=== PATIENT | female | born 1970 | race Caucasian/White ===

== ENCOUNTER 2020-11-01 22:40 | Inpatient (IN) | payer MEDICAID ==
[~2020-11-01] VITALS: Ht 162.6 cm; Wt 68.2 kg
[~2020-11-01 22:40] MED LIST: BAC10T PO; CLON-527 PO; GABA300C PO; HYDR-3965 PO; Milk Thistle PO; NO HOME MEDS; OMEP-84 PO
[2020-11-01] MEDS ORDERED: acetaminophen 325mg tablet PO STA (22:54)
[2020-11-01] MEDS ORDERED: normal saline 1000ML IV soln IV ONE (22:55)
[2020-11-01] MEDS ORDERED: CefTRIAXone 2gm/D5W 50ml BAG 50 ML IV ONE (22:55)
[2020-11-01 23:52] LABS: ALANINE AMINOTRANSFERASE 39 U/L (12-78); ALBUMIN 2.1 G/DL (3.4-5.0); ALBUMIN/GLOBULIN RATIO 0.6 (1.1-1.5); ALKALINE PHOSPHATASE 79 IU/L (46-116); ANION GAP 10 (8-16); ASPARTATE AMINO TRANSFERASE 31 U/L (10-37); BILIRUBIN,TOTAL 0.6 MG/DL (0.1-1.0); BLOOD UREA NITROGEN 19 MG/DL (7-18); BUN/CREATININE RATIO 14.7 (6.6-38.0); CALCIUM 6.6 MG/DL (8.5-10.1); CHLORIDE 106 MMOL/L (99-107); CREATININE 1.29 MG/DL (0.40-0.90); ETHANOL < 0.010 GM/DL (0.0-0.010); GLUCOSE 112 MG/DL (70-104); SODIUM 137 MMOL/L (135-145); TOTAL CARBON DIOXIDE 21.2 MMOL/L (24-32); TOTAL PROTEIN 5.4 G/DL (6.4-8.2); eGFR 44 ML/MIN
[2020-11-01 23:53] LABS: POTASSIUM 2.8 MMOL/L (3.5-5.1)
[2020-11-02] VITALS (19 sets, daily range): BP systolic 79–114; BP diastolic 50–78
[2020-11-02] MEDS ORDERED: potassium Cl 20 mEq SR tablet PO ONE (00:20)
[2020-11-02] MEDS ORDERED: magnesium 2GM in 50ml NS 50 ML IV ONE (00:20)
[2020-11-02] MEDS: potassium Cl 10 mEq/100mL bag IV SCH ×2 (00:20→01:20)
[2020-11-02] MEDS ORDERED: ketorolac trometh. 30mg/ml inj. IV ONE (00:25)
[2020-11-02] MEDS ORDERED: morphine 4 MG/ML inj SYRINge IV ONE (00:25)
[2020-11-02 00:53] LABS: MAGNESIUM 1.2 MG/DL (1.5-2.4)
[2020-11-02 01:05] LABS: BASOPHILS % (AUTO) 0.1 % (0-1); EOSINOPHILS % (AUTO) 0 % (0-6); HEMATOCRIT 36.2 % (35.0-45.0); LYMPHOCYTES # (AUTO) 0.6 X10'3 (1.1-4.8); LYMPHOCYTES % (AUTO) 2.3 % (21-51); MEAN CORPUSCULAR HEMOGLOBIN 29.3 PG (27.0-31.0); MEAN CORPUSCULAR VOLUME 88.9 FL (78-98); MEAN PLATELET VOLUME 8.3 FL (7.4-10.4); MONOCYTES % (AUTO) 3.7 % (2-12); NEUTROPHILS # (AUTO) 24.1 X10'3 (1.8-7.7); NEUTROPHILS % (AUTO) 93.9 % (42-75); PLATELET COUNT 122 X10'3 (140-440); RED BLOOD COUNT 4.08 X10'6 (4.20-5.60); RED CELL DISTRIBUTION WIDTH 13.2 % (11.5-14.5)
[2020-11-02 01:07] LABS: WHITE BLOOD COUNT 25.7 X10'3 (4.5-11.0)
[2020-11-02] MEDS ORDERED: morphine 2 MG/ML inj. syringe IV PRN ×3 (01:30→10:40)
[2020-11-02] MEDS ORDERED: HYDROcodone/acetaminophen 10/325mg tab PO PRN (01:30)
[2020-11-02] MEDS ORDERED: diphenhydrAMINE 25mg capsule PO PRN (01:30)
[2020-11-02] MEDS ORDERED: bisacodyl 10mg suppository rectal RC PRN (01:30)
[2020-11-02] MEDS ORDERED: mag hydrox/Alum hydrox/simeth 30ml oral suspension PO PRN (01:30)
[2020-11-02] MEDS ORDERED: acetaminophen 325mg tablet PO PRN ×2 (01:30)
[2020-11-02] MEDS: normal saline 1000ml 1,000 ML IV SCH ×3 (01:30→21:30)
[2020-11-02] MEDS ORDERED: magnesium hydroxide 30ml (MOM) UD suspension PO PRN (01:30)
[2020-11-02] MEDS ORDERED: ondansetron/PF 4mg/2ml inj IV PRN ×2 (01:30→10:40)
[2020-11-02] MEDS ORDERED: HYDROcodone/acetaminophen 5mg/325mg tablet PO PRN (01:30)
[2020-11-02] MEDS ORDERED: HYDROmorphone inj. 0.5 MG/0.5 ML DISP.SYRIN IV PRN (01:30)
[2020-11-02] MEDS ORDERED: diphenhydrAMINE 50 mg/ml inj IV PRN (01:30)
[2020-11-02] MEDS ORDERED: ondansetron 4mg rapidly disintigrating tab PO PRN (01:30)
[2020-11-02] MEDS ORDERED: potassium Cl 40MEQ/1/2NS 520ml 520 ML IV PRN (01:35)
[2020-11-02] MEDS ORDERED: potassium Cl 20 mEq SR tablet PO PRN ×2 (01:35)
[2020-11-02] MEDS ORDERED: magnesium 4gm in 100ml NS 100 ML IV PRN (01:35)
[2020-11-02] MEDS ORDERED: magnesium Cl slow-release 64mg tablet PO PRN (01:35)
[2020-11-02] MEDS ORDERED: NO HOME MEDS PO (01:56)
[2020-11-02] MEDS ORDERED: ringers solution, lacted 1,000 ML IV ONE (02:30)
[2020-11-02 02:41] LABS: PARTIAL THROMBOPLASTIN TIME 45 SECONDS (22-32)
[2020-11-02 02:49] LABS: PHOSPHORUS 2.2 MG/DL (2.3-4.5)
[2020-11-02 03:07] LABS: ANISOCYTOSIS 1+; PLATELET ESTIMATE DECREASED; TOTAL CELLS COUNTED 100
[2020-11-02] MEDS: pantoprazole 40mg Tablet.DR PO SCH (07:30)
[2020-11-02] MEDS: K and/or MAG REPLACEMENT MC SCH ×2 (08:00→20:00)
[2020-11-02] MEDS: docusate sod 100mg capsule PO SCH ×2 (08:00→20:00)
[2020-11-02] MEDS ORDERED: morphine 4 MG/ML inj SYRINge IV PRN (10:40)
[2020-11-02] MEDS ORDERED: labetalol 20mg/4ml (5mg/ml) syringe IV PRN (10:40)
[2020-11-02] MEDS ORDERED: ringers solution, lacted 1,000 ML IV SCH (10:40)
[2020-11-02] MEDS ORDERED: hydrALAZINE 20mg/ml inj. IV PRN (10:40)
[2020-11-02] MEDS ORDERED: fentaNYL/PF 50MCG/1 ML 2ML syringe IV PRN ×2 (10:40)
[2020-11-02] MEDS: CefTRIAXone/D5W-Rocephin 1gm 50 ML IV SCH (11:02)
[2020-11-02 11:25] LABS: CLARITY,URINE CLOUDY (Clear); COLOR,URINE YELLOW (Yellow); GLUCOSE, URINE NEGATIVE (Neg); KETONES,URINE NEGATIVE (Neg); LEUKOCYTE ESTERASE ,URINE LARGE (Neg); OCCULT BLOOD,URINE LARGE (Neg); PH,URINE 5.5 (4.8-8.0); PROTEIN,URINE 100 mg/dl (Neg); URINE AMPHETAMINE SCREEN POSITIVE (Neg); URINE BARBITUATE SCREEN NEGATIVE (Neg); URINE BENZODIAZEPINES SCREEN NEGATIVE (Neg); URINE CANNABINOID SCREEN POSITIVE (Neg); URINE COCAINE SCREEN NEGATIVE (Neg); URINE METHADONE SCREEN NEGATIVE (Neg); URINE OPIATE SCREEN POSITIVE (Neg); URINE PHENCYCLIDINE SCREEN NEGATIVE (Neg); UROBILINOGEN,URINE 0.2 E.U/dL (0.2-1.0)
[2020-11-02] MEDS ORDERED: potassium Cl 10 mEq/100mL bag IV ONE (11:30)
[2020-11-02 11:31] LABS: NITRITES, URINE NEGATIVE (Neg); UA COLLECTION TYPE CLN CATCH MIDSTREAM
[2020-11-02 11:36] LABS: BACTERIA,URINE 4+ /HPF (Neg); SQUAMOUS EPITHELIAL CELL,UR FEW /LPF (FEW); WBC,URINE TNTC /HPF (0-4)
[2020-11-02] MEDS ORDERED: desflurane 240ml liquid inh. IH ONE (12:13)
[2020-11-02] MEDS ORDERED: dexamethasone sod phosphate 10mg/ml inj ONE (12:13)
[2020-11-02] MEDS ORDERED: fentaNYL/PF 50MCG/1 ML 2ML syringe ONE (12:22)
[2020-11-02] MEDS ORDERED: LIDOcaine 2% (20mg/ml) 5ml vial ONE (12:29)
[2020-11-02] MEDS ORDERED: propofol inj 20 ML IV ONE (12:29)
[2020-11-02] MEDS ORDERED: ondansetron/PF 4mg/2ml inj ONE (12:29)
--- NOTE | 2020-11-02 13:00 | NUR ---
PT ARRIVED TO OR VIA GURNEY WITH ANESTHESIOLOGIST, DR BOWLING-REPORT GIVEN, PT STILL SLEEPY, VSS BP HAS BEEN CONSISTENTLY LOW, FEET RAISED, ALBUMIN AVAILABLE IF NEEDED, PIV 20G TO LEFT HAND-NS RUNNING, SCDS IN PLACE, WARM BLANKETS PLACED TO HELP WARM PT.
[2020-11-02] MEDS ORDERED: albumin (Human) 5% 250ml 250 ML IV ONE (13:40)
--- NOTE | 2020-11-02 14:15 | NUR ---
PT AWAKE SITTING UP, VSS WITHOUT NEED FOR ALBUMIN, DENIES PAIN, TAKING FLUIDS, HOSPITALIST IN TO SEE PT-WAITING FOR BED
--- NOTE | 2020-11-02 16:30 | NUR ---
PT HAS BEEN COMFORTABLE, DENIES PAIN, PIV -NS RUNNING AT 100ML/HR UP TO VOID W/O PROBLEM, VSS, TOLERATING MEAL TRAY, STILL WAITING FOR BED.
--- NOTE | 2020-11-02 17:10 | NUR ---
PT STABLE, VSS DENIES PAIN, REPORT CALLED TO PRIMARY RNALINE, ALL QUESTIONS ANSWERED, PT TAKEN WITH ALL BELONGINGS TO RM 3013B VIA W/C. PT AMBULATED SAFELY TO BED W/O DIFFICULTY, PRIMARY RN PRESENT TO RECEIVE PT.
--- NOTE | 2020-11-02 17:17 | NUR ---
Patient in room ED HALL13. I have received report from PRATIBHA COPELAND and had the opportunity to ask questions and assume patient care.
--- NOTE | 2020-11-02 18:00 | NUR ---
Patient in room PCU 3013. I have received report from Mima COPELAND and had the opportunity to ask questions and assume patient care.
--- NOTE | 2020-11-02 18:43 | NUR ---
Problems reprioritized. Patient report given, questions answered & plan of care reviewed with Nicole COPELAND.
[2020-11-02] MEDS ORDERED: temazepam 15mg capsule PO PRN (21:00)
[2020-11-02] MEDS ORDERED: tamsulosin 0.4mg capsule PO SCH (21:00)
--- NOTE | 2020-11-03 01:55 | NUR ---
Patient in room PCU 3013. I have received report from Shikha COPELAND and had the opportunity to ask questions and assume patient care.
[2020-11-03 06:00] VITALS: BP 136/82
[2020-11-03 06:13] LABS: BASOPHILS % (AUTO) 0 % (0-1); EOSINOPHILS % (AUTO) 0 % (0-6); HEMATOCRIT 33.1 % (35.0-45.0); HEMOGLOBIN 10.9 g/dl (12.0-16.0); LYMPHOCYTES # (AUTO) 0.6 X10'3 (1.1-4.8); LYMPHOCYTES % (AUTO) 2.8 % (21-51); MEAN CORPUSCULAR HEMOGLOBIN 29.2 PG (27.0-31.0); MEAN CORPUSCULAR HGB CONC 33.1 g/dL (33.0-36.5); MEAN PLATELET VOLUME 8.7 FL (7.4-10.4); MONOCYTES # (AUTO) 0.6 X10'3 (0-0.9); MONOCYTES % (AUTO) 2.9 % (2-12); NEUTROPHILS # (AUTO) 18.9 X10'3 (1.8-7.7); NEUTROPHILS % (AUTO) 94.3 % (42-75); PLATELET COUNT 101 X10'3 (140-440); RED BLOOD COUNT 3.76 X10'6 (4.20-5.60); RED CELL DISTRIBUTION WIDTH 13.5 % (11.5-14.5)
--- NOTE | 2020-11-03 06:26 | NUR ---
Problems reprioritized. Patient report given, questions answered & plan of care reviewed with Polly COPELAND.
[2020-11-03 06:27] LABS: ALANINE AMINOTRANSFERASE 43 U/L (12-78); ALBUMIN/GLOBULIN RATIO 0.5 (1.1-1.5); ALKALINE PHOSPHATASE 98 IU/L (46-116); ANION GAP 8 (8-16); ASPARTATE AMINO TRANSFERASE 24 U/L (10-37); BILIRUBIN,TOTAL 0.3 MG/DL (0.1-1.0); BLOOD UREA NITROGEN 26 MG/DL (7-18); BUN/CREATININE RATIO 21.7 (6.6-38.0); CHLORIDE 108 MMOL/L (99-107); GLUCOSE 129 MG/DL (70-104); MAGNESIUM 2.2 MG/DL (1.5-2.4); POTASSIUM 4.6 MMOL/L (3.5-5.1); SODIUM 139 MMOL/L (135-145); TOTAL CARBON DIOXIDE 23.2 MMOL/L (24-32); TOTAL PROTEIN 6.1 G/DL (6.4-8.2); eGFR 48 ML/MIN
--- NOTE | 2020-11-03 06:30 | NUR ---
pt has been darted per shift supervisor melting but needed skin check. night nurse said they would get this signed with another nurse.
--- NOTE | 2020-11-03 06:32 | NUR ---
Patient in room PCU 3013. I have received report from JENS COPELAND and had the opportunity to ask questions and assume patient care.
[2020-11-03] MEDS: normal saline 1000ml 1,000 ML IV SCH (07:30)
[2020-11-03] MEDS: CefTRIAXone/D5W-Rocephin 1gm 50 ML IV SCH (08:00)
[2020-11-03] MEDS: K and/or MAG REPLACEMENT MC SCH (08:00)
[2020-11-03] MEDS: pantoprazole 40mg Tablet.DR PO SCH (09:38)
[2020-11-03] MEDS: docusate sod 100mg capsule PO SCH (09:38)
--- NOTE | 2020-11-03 10:05 | NUR ---
went to give pt morning meds she stated she feels as if she is being discriminated and wants to leave. i let the charge nurse and doctor know. doctor does not want to discharge her so pt would have to fill out AMA form. pt agreed and declined iv antibiotics. i had pt fill out AMA form and had dr wesley sign it along with letting the charge nurse mario aware of the pts status. pt will arrange own ride home.
--- NOTE | 2020-11-03 12:00 | NUR ---
pt left AMA, tele was taken off, she took all belongings with her and I've was Discontinued. pt was made aware of risk factors of early discharge without dr approved discharge
--- NOTE | 2020-11-04 11:38 | NUR ---
PT LEFT AMA Addendum: 11/04/20 at 1139 by Graciela Daly RN, CM Amended: Links added.
== END 2020-11-03 11:55 | disposition left against medical advice (07) | DRG 720 ==
LOC: ER 22:41 → ED HOLD 11-02 01:35 → PCU 3S 11-02 18:08
PROVIDERS: ADMIT Family Medicine; ATTEND Internal Medicine
PROC: 0T778DZ Dilation of Left Ureter with Intraluminal Device, Via Natural or Artificial Opening Endoscopic (ICD-10-PCS; 2020-11-02)
PROC: 0T7D7ZZ Dilation of Urethra, Via Natural or Artificial Opening (ICD-10-PCS; principal; 2020-11-02 12:13)
DX: A41.9 Sepsis, unspecified organism (principal); E87.2 Acidosis; N17.9 Acute kidney failure, unspecified; D69.6 Thrombocytopenia, unspecified; J90 Pleural effusion, not elsewhere classified; K76.0 Fatty (change of) liver, not elsewhere classified; E83.42 Hypomagnesemia; Z53.29 Procedure and treatment not carried out because of patient's decision for other reasons; F41.9 Anxiety disorder, unspecified; B18.2 Chronic viral hepatitis C; Z20.822 Contact with and (suspected) exposure to COVID-19; E87.6 Hypokalemia; F17.210 Nicotine dependence, cigarettes, uncomplicated; N13.6 Pyonephrosis; N35.92 Unspecified urethral stricture, female; Z59.0 Homelessness; Z87.442 Personal history of urinary calculi; Z88.5 Allergy status to narcotic agent
CPT/HCPCS: 36415; 74176; 76000; 80053; 80305; 80320; 81001; 83036; 83605; 83735; 83880; 84100; 84145; 85007; 85025; 85610; 85730; 87040; 87077; 87081; 87088; 87186; 87635; 93005; 96365; 99285; A4618; C1769; C2617; G0378; J0696; J1100; J1200; J1885; J2001; J2270; J2405; J2704; J3010; J3475; J3480; J7030; J7120

== ENCOUNTER 2024-04-23 19:56 | Emergency (ER) | payer MEDICAID ==
[~2024-04-23] VITALS: Ht 162.6 cm; Wt 56.6 kg
[~2024-04-23 19:56] MED LIST changes: -BAC10T PO; -CLON-527 PO; -GABA300C PO; -HYDR-3965 PO; -Milk Thistle PO; -NO HOME MEDS; +NO HOME MEDS PO; -OMEP-84 PO
[2024-04-23 19:58] VITALS: BP 186/99; PULSE 112; RESP 15; TEMP 98.6; O2SAT 96
== END 2024-04-23 21:42 | disposition left against medical advice (07) ==
LOC: ER 19:56
DX: R19.7 Diarrhea, unspecified (principal); Z88.5 Allergy status to narcotic agent; Z53.21 Procedure and treatment not carried out due to patient leaving prior to being seen by health care provider

== ENCOUNTER 2024-04-30 17:07 | Emergency (ER) | payer MEDICAID ==
[~2024-04-30] VITALS: Ht 162.6 cm; Wt 67.0 kg
[2024-04-30 17:12] VITALS: BP 130/106; PULSE 121; RESP 18; TEMP 97.3; O2SAT 97
[2024-04-30 17:44] LABS: BASOPHILS # (AUTO) 0.1 X10'3 (0-0.2); BASOPHILS % (AUTO) 0.4 % (0-1); EOSINOPHILS # (AUTO) 0.4 X10'3 (0-0.9); EOSINOPHILS % (AUTO) 2.9 % (0-6); HEMATOCRIT 33.8 % (35.0-45.0); HEMOGLOBIN 10.8 g/dl (12.0-16.0); LYMPHOCYTES # (AUTO) 1.2 X10'3 (1.1-4.8); LYMPHOCYTES % (AUTO) 8.4 % (21-51); MEAN CORPUSCULAR HEMOGLOBIN 29.4 PG (27.0-31.0); MEAN CORPUSCULAR HGB CONC 32.1 g/dL (33.0-36.5); MEAN CORPUSCULAR VOLUME 91.6 FL (78-98); MEAN PLATELET VOLUME 7.4 FL (7.4-10.4); MONOCYTES % (AUTO) 6.8 % (2-12); NEUTROPHILS # (AUTO) 11.4 X10'3 (1.8-7.7); NEUTROPHILS % (AUTO) 81.5 % (42-75); PLATELET COUNT 463 X10'3 (140-440); RED BLOOD COUNT 3.69 X10'6 (4.20-5.60); RED CELL DISTRIBUTION WIDTH 17.6 % (11.5-14.5)
[2024-04-30 18:09] LABS: ALBUMIN 3.1 G/DL (3.4-5.0); ANION GAP 10 (8-16); BLOOD UREA NITROGEN 17 MG/DL (7-18); CALCIUM 9.2 MG/DL (8.5-10.1); CHLORIDE 105 MMOL/L (99-107); GLUCOSE 148 MG/DL (70-104); SODIUM 141 MMOL/L (135-145); TOTAL CARBON DIOXIDE 26.1 MMOL/L (24-32); eCRCL 57 ML/MIN; eGFR 58 ML/MIN
== END 2024-04-30 18:21 | disposition left against medical advice (07) ==
LOC: ER 17:08
DX: T81.9XXA Unspecified complication of procedure, initial encounter (principal); Z88.5 Allergy status to narcotic agent; Z53.21 Procedure and treatment not carried out due to patient leaving prior to being seen by health care provider; Y83.9 Surgical procedure, unspecified as the cause of abnormal reaction of the patient, or of later complication, without mention of misadventure at the time of the procedure
CPT/HCPCS: 36415; 80048; 83605; 84145; 85025; 87040